=== PATIENT | male | born 1990 | race Caucasian/White ===

== ENCOUNTER 2019-09-05 04:30 | Emergency (ER) | payer BC ==
[~2019-09-05] VITALS: Ht 175.3 cm; Wt 69.8 kg
[~2019-09-05 04:30] MED LIST: ALLERCLEAR10 MG; BACTRIM DS TAB1 EACH PO; HYDROXYZINE HCL25 M1 PO; NORCO 5-325 TA1 EACH PO; OMEPRAZOLE10 MG PO; PHENERGAN 25 MG25 M1 PO; ZOFRAN4 MG PO
[2019-09-05 05:26] LABS: INFLUENZA A ANTIGEN Negative (Negative); INFLUENZA B ANTIGEN Negative (Negative)
[2019-09-05] MEDS ORDERED: PROAIR HFA8.5 GM INH (05:32)
[2019-09-05] MEDS ORDERED: HYDROXYZINE HCL25 M2 PO (05:32)
[2019-09-05] MEDS ORDERED: PREDNISONE50 MG PO (05:32)
[2019-09-05] MEDS ORDERED: ALBUTEROL2.5 MG/31 INH (05:49)
[2019-09-05 05:55] VITALS: BP 143/81
== END 2019-09-05 05:56 | disposition home or self-care (01) ==
LOC: M.ERS 04:30
PROVIDERS: Emergency Medicine
DX: J45.901 Unspecified asthma with (acute) exacerbation (principal); F41.9 Anxiety disorder, unspecified

== ENCOUNTER 2019-09-08 09:43 | Emergency (ER) | payer BC ==
[~2019-09-08] VITALS: Ht 175.3 cm; Wt 70.3 kg
[~2019-09-08 09:43] MED LIST changes: +ALBUTEROL2.5 MG/31 INH; +HYDROXYZINE HCL25 M2 PO; +PREDNISONE50 MG PO; +PROAIR HFA8.5 GM INH
[2019-09-08 10:36] LABS: ABSOLUTE LYMPHOCYTES 0.6 thou/uL (0.8-5.3); ABSOLUTE MONOCYTES 0.3 thou/uL (0.0-1.2); ABSOLUTE NEUTROPHILS 2.3 thou/uL (1.6-8.1); BASOPHILS 0.8 %; EOSINOPHILS 0.1 %; HEMATOCRIT 43.2 % (42.0-52.0); HEMOGLOBIN 14.7 gm/dL (14.0-18.0); LYMPHOCYTES 18.2 %; MCH 30.2 pg (26.0-34.0); MCHC 34.1 g/dL (28.0-37.0); MCV 88.4 fL (80.0-100.0); MONOCYTES 9.5 %; MPV 8.6 fl. (7.2-11.1); NUCLEATED RBCS 0 /100WBC; PLATELET COUNT* 129 thou/uL (150-400); POLYS 71.4 %; RBC 4.88 mil/uL (4.50-6.00); RDW-CV 13.8 % (10.5-14.5); WBC 3.2 thou/uL (4.0-11.0)
[2019-09-08 10:39] LABS: INFLUENZA A ANTIGEN Negative (Negative); INFLUENZA B ANTIGEN Negative (Negative)
[2019-09-08 10:40] LABS: CALCIUM 8.5 mg/dL (8.5-10.1); POTASSIUM 4.2 mmol/L (3.5-5.1)
[2019-09-08 10:44] LABS: TOTAL BILIRUBIN 0.6 mg/dL (<0.1-1.0); TOTAL PROTEIN 7.5 g/dL (6.4-8.2)
[2019-09-08] MEDS ORDERED: ZOFRAN ODT4 MG PO (12:30)
[2019-09-08 12:44] VITALS: BP 125/77
== END 2019-09-08 12:49 | disposition home or self-care (01) ==
LOC: M.ERS 09:43
PROVIDERS: Personal Emergency Response Attendant
DX: K52.9 Noninfective gastroenteritis and colitis, unspecified (principal)

== ENCOUNTER 2019-10-03 19:57 | Emergency (ER) | payer BC ==
[~2019-10-03] VITALS: Ht 175.3 cm; Wt 67.1 kg
[~2019-10-03 19:57] MED LIST changes: +ZOFRAN ODT4 MG PO
[2019-10-03 20:40] LABS: HEMATOCRIT 35.8 % (42.0-52.0); HEMOGLOBIN 12.2 gm/dL (14.0-18.0); MCH 29.4 pg (26.0-34.0); MCHC 34.1 g/dL (28.0-37.0); MCV 86.3 fL (80.0-100.0); MPV 7.9 fl. (7.2-11.1); NUCLEATED RBCS 0 /100WBC; PLATELET COUNT* 266 thou/uL (150-400); RBC 4.15 mil/uL (4.50-6.00); RDW-CV 13.8 % (10.5-14.5); WBC 12.7 thou/uL (4.0-11.0)
[2019-10-03 20:41] LABS: AMP/METHAMP Negative (Negative); BARBITURATES Negative (Negative); BENZODIAZEPINES Negative (Negative); COCAINE Negative (Negative); METHADONE Negative (Negative); OPIATES Negative (Negative); PCP Negative (Negative); THC POSITIVE (Negative)
[2019-10-03 20:48] LABS: CALCIUM 8.3 mg/dL (8.5-10.1); CREATININE 0.8 mg/dL (0.6-1.3); POTASSIUM 3.3 mmol/L (3.5-5.1)
[2019-10-03 20:53] LABS: ALBUMIN 3.6 g/dL (3.4-5.0); TOTAL BILIRUBIN 0.5 mg/dL (<0.1-1.0); TOTAL PROTEIN 7.9 g/dL (6.4-8.2)
[2019-10-03 20:57] LABS: ABSOLUTE LYMPHOCYTES 0.8 thou/uL (0.8-5.3); ABSOLUTE MONOCYTES 0.4 thou/uL (0.0-1.2); ABSOLUTE NEUTROPHILS 11.6 thou/uL (1.6-8.1); ATYPICAL LYMPHS 1 %; PLATELET ESTIMATE ADEQUATE
[2019-10-03 21:04] LABS: INFLUENZA A ANTIGEN Negative (Negative); INFLUENZA B ANTIGEN Negative (Negative)
[2019-10-03] MEDS ORDERED: PREDNISONE50 MG PO (23:26)
[2019-10-03] MEDS ORDERED: PROAIR HFA8.5 GM INH (23:26)
[2019-10-03] MEDS ORDERED: ALBUTEROL2.5 MG/31 INH (23:26)
[2019-10-03 23:37] VITALS: BP 103/76
--- NOTE | 2019-10-08 13:55 | EKG ---
[place] [address] ELECTROCARDIOGRAM REPORT Name: MARGIE ALEMAN JUNO Room: [facility]#: [id number] Admission: 10/03/19 Attend Phys: Discharge: 10/03/19 Date of : 89 Date of Service: 10/03/192039 Report #: [id number] THIS REPORT FOR: cc: Salty Harris MD, Hamid MD Blick,Tacho Velasquez MD [facility] ~ THIS REPORT FOR: //name// [facility] ED Test Date: 2019-10-03 Test Time: 20:40:17 Pat Name: MARGIE PRICE Department: Room: Gender: M [employer] Driver: KAREN : 1990 Requested By: Sheba Evans Order Number: [id number] MD: Tacho Nice Measurements Intervals [place] Rate: 102 P: 60 MS: 142 QRS: 57 QRSD: 71 T: 40 QT: 308 QTc: 402 Interpretive Statements Sinus tachycardia No previous ECG available for comparison Electronically Signed On 10-04-2019 13:30:07 MAINTENANCE AIDE by Tacho Nice [email or web address] <ELECTRONICALLY SIGNED> By: Tacho Nice MD, [facility] 10/04/190 39 39 Tacho Nice MD, [facility] /EPI
== END 2019-10-03 23:38 | disposition home or self-care (01) ==
LOC: M.ERS 19:57
PROVIDERS: Emergency Medicine
DX: J40 Bronchitis, not specified as acute or chronic (principal); R42 Dizziness and giddiness; Z98.84 Bariatric surgery status